=== PATIENT | male | born 1985 | race Native Hawaiian/Other Pacific Islander ===

== ENCOUNTER 2020-02-04 16:57 | Emergency (ER) | payer BC ==
[~2020-02-04] VITALS: Ht 175.3 cm; Wt 68.0 kg
--- NOTE | 2020-02-04 17:38 | NUR ---
PATIENT CAME TO ER BED 13 C/O BILATERAL LOWER BACK PAIN. PATIENT STATES THAT HE WENT TO SEE A DOCTOR, AND WAS TOLD IT MIGHT BE KIDNEY STONES. PATIENT STATES THAT WHEN HE AMBULATES, HIS LOWER BACK BEGINS HURTING. PATIENT IS AAOX4. NO SOB. BREATHING EVENLY AND UNLABORED ON ROOM AIR. CONNECTED TO THE MONITOR.
--- NOTE | 2020-02-04 17:50 | NUR ---
BLOOD IS COLLECTED AND SENT TO THE LAB.
[2020-02-04] MEDS ORDERED: ONDANSETRON HCL/PF 4 MG/2 ML VIAL ONE (17:58)
[2020-02-04] MEDS ORDERED: MORPHINE SULFATE INJ 4 MG/ML DISP.SYRIN ONE (17:58)
[2020-02-04 18:03] LABS: BILIRUBIN,URINE Negative (NEGATIVE); BLOOD, URINE Trace-intact Ery/uL (NEGATIVE); COLOR,URINE YELLOW (YELLOW); LEUKOCYTE ESTERASE ,URINE Negative (NEGATIVE); NITRITE, URINE Negative (NEGATIVE); PROTEIN,URINE Negative (NEGATIVE); UGLUCOSE Negative (NEGATIVE); UROBILINOGEN,URINE 0.2 EU/dL (0.2)
[2020-02-04 18:07] LABS: BASOPHILS % (AUTO) 0.4 % (0.0-2.0); HEMATOCRIT 49 % (39-51); HEMOGLOBIN 16.5 g/dL (13.5-17.5); LYMPHOCYTES # (AUTO) 1.5 /CMM (0.8-4.8); LYMPHOCYTES % (AUTO) 16.6 % (20.0-44.0); MEAN CORPUSCULAR HGB CONC 34 g/dl (31.0-36.0); MEAN CORPUSCULAR VOLUME 90 fL (80-96); MONOCYTES # (AUTO) 0.4 /CMM (0.1-1.30); MONOCYTES % (AUTO) 4.1 % (2.0-12.0); NEUTROPHILS # (AUTO) 7.2 /CMM (1.8-8.9); NEUTROPHILS % (AUTO) 77.9 % (43.0-81.0); PLATELET COUNT (AUTO) 311 /CMM (150-450); WHITE BLOOD COUNT (AUTO) 9.2 K/uL (4.3-11.0)
[2020-02-04] MEDS: IV NS 0.9% 1,000 ML BAG IV ONE (18:08)
[2020-02-04] MEDS: ONDANSETRON HCL/PF 4 MG/2 ML VIAL IVP ONE (18:08)
[2020-02-04] MEDS: MORPHINE SULFATE INJ 2 MG/ML DISP.SYRIN IV ONE (18:08)
--- NOTE | 2020-02-04 18:10 | NUR ---
URINE COLLECTED AND SENT TO THE LAB.
[2020-02-04 18:14] LABS: BACTERIA,URINE Few /HPF (None Seen); SQUAMOUS EPITHELIAL CELL,UR Few /HPF (None Seen); WBC,URINE 0-2 /HPF (0-3)
[2020-02-04 18:17] LABS: POTASSIUM 4.2 mmol/L (3.5-5.1)
[2020-02-04 18:23] LABS: ALBUMIN 4.1 g/dL (3.4-5.0); BILIRUBIN,DIRECT 0.1 mg/dL (0.0-0.2); BILIRUBIN,TOTAL 0.2 mg/dL (0.2-1.0); TOTAL PROTEIN, SERUM 8.1 g/dL (6.4-8.2)
[2020-02-04] MEDS ORDERED: KETOROLAC TROMETHAMINE INJ 30 MG/ML VIAL ONE (18:49)
[2020-02-04] MEDS: KETOROLAC TROMETHAMINE INJ 30 MG/ML VIAL IV ONE (18:55)
[2020-02-04 19:59] VITALS: BP 132/75
--- NOTE | 2020-02-04 19:59 | NUR ---
Patient discharged to home in stable condition. Written and verbal after care instructions given. Patient verbalizes understanding of instruction.
--- NOTE | 2020-02-04 19:59 | NUR ---
IV removed. Catheter intact and site benign. Pressure and 4x4 applied to site. No bleeding noted.
--- NOTE | 2020-02-04 20:00 | NUR ---
Patient is calling an [employer] to pick him up.
== END 2020-02-04 20:00 | disposition home or self-care (01) ==
LOC: ER 17:04
DX: R10.9 Unspecified abdominal pain (principal); R31.9 Hematuria, unspecified; Z87.440 Personal history of urinary (tract) infections
CPT/HCPCS: 36415; 74176; 80048; 80076; 81001; 83690; 85025; 96361; 96374; 96375; 99284; J1885; J2270; J2405; J7030